=== PATIENT | female | born 1960 | race Caucasian/White ===

== ENCOUNTER → 2017-08-18 | Outpatient (CLI) | payer BC, OTHER ==
[~2017-08-18] VITALS: Ht 170.2 cm; Wt 85.5 kg
[~2017-08-18] MED LIST: BENADRYL25 MG PO; ENDOMETRIN100 MG VG; FLEXERIL PO; NABUMETONE 750750 M1 PO; PREDNISONE 20 M20 MG PO; PROGESTERONE100 MG PO
--- NOTE | ~2017-08-18 | HPC ---
[facility] [address] [email or web address] [address] PAIN MANAGEMENT CONSULTATION Name: AMISH TY Room #: REG [facility]#: [id number] Admission: 08/18/17 Attend Phys: Kojo Pino DO Discharge: Date of : 60 Report #: [id number] THIS REPORT FOR: //name// CC: Kojo Juárez MD DATE OF SERVICE: 08/18/2017 REFERRING PHYSICIAN: Luis Juárez MD CHIEF COMPLAINT: Neck pain and bilateral upper extremity pain and paresthesias. HISTORY OF PRESENT ILLNESS: As you know, the patient is a 57-year-old female who began experiencing neck pain and bilateral upper extremity pain with radiation to the thumb and index fingers bilaterally, presented 07/2017. She denies injury or trauma that may have led to symptoms. She indicates the pain is spontaneous onset, began in the hands with numbness and tingling that can radiate through the entire hand and then progressed into the upper extremities all the way to the neck. She states that coughing, bending over and certain movements with the neck caused instantaneous electrical-like sensations radiating from the neck all the way down into the index finger and thumb bilaterally left greater than right. She has tried conservative medical therapy with her primary care physician, but has not seen improvement. She was subsequently referred to our clinic after undergoing imaging of the cervical spine via MRI. The patient states today her pain is continuous. Describes the pain as burning, shooting, aching, throbbing, sharp, electrical, numbness, tingling. Places current pain score 6/10, daily average of 6/10, worst pain has been 9/10. The patient states the pain is exacerbated with coughing, bending over, moving her neck in certain directions. States muscle relaxers and rest tend to improve pain. She has been referred to our service by her primary care physician for suspected cervical radiculopathy. PAST MEDICAL HISTORY: 1. Chronic stomach problems. 2. Degenerative joint disease. 3. Osteoarthritis. PAST SURGICAL HISTORY: 1. Hysterectomy. 2. Laparoscopies x 7. SOCIAL HISTORY: The patient denies tobacco, IV or illicit drug use. Admits to one alcohol beverage per day. She is a human service specialist. She is [address] [address] PAIN MANAGEMENT CONSULTATION Name: AMISH TY Room #: REG [facility].#: [id number] Admission: 08/18/17 Attend Phys: Kojo Pino DO Discharge: Date of : 60 Report #: [id number] working, not receiving workmen's compensation, nor is trying to obtain disability benefits. She is not in litigation in regards to her pain. She is unaccompanied today. REVIEW OF SYSTEMS: Positive for night sweats, fatigue and weakness, headaches, wearing corrective eyewear, nosebleeds, frequent and recurrent headaches, numbness and tingling sensations involving the bilateral upper extremities all the way into the hand, insomnia, chronic neck pain, postmenopausal symptoms. All other review of systems negative per 12-point review of systems other than those listed in history of present illness. Pain impact score 29/70 indicating moderate interference of daily activities secondary to pain. ALLERGIES: SEAFOOD. CURRENT MEDICATIONS: Progesterone 100 mg once a day, cyclobenzaprine 10 mg 3 times a day, nabumetone 750 mg twice a day. IMAGING: MRI of cervical spine obtained on 08/12/2017 shows, C2-C3, no significant disk bulge or central canal stenosis, advanced right facet arthropathy leading to mild right neural foraminal stenosis, no left neural foraminal stenosis. C3-C4, mild general disk bulge, ligamentum flavum thickening, abutting anterior and posterior margins of the cord, moderate narrowing of the thecal sac. C4-C5, mild anterolisthesis, mild generalized disk bulging, central canal is mildly narrowed, facet arthropathy noted, mild on the right, not on the left. C5-C6, mild generalized disk bulge touching anterior spinal cord, mild stenosis, borderline right, no significant left neural foraminal narrowing. C6-C7, moderate disk space narrowing, mild left eccentric generalized disk complex, moderate central canal stenosis. C7-T1 unremarkable. PHYSICAL EXAMINATION: VITAL SIGNS: Blood pressure 149/97, pulse is 86, respiratory rate 18, unlabored. The patient is 99% on room air. Height 5 feet 7 inches tall, weight 188.6 pounds, BMI calculated 29.6. GENERAL: Well-developed, well-nourished, well-hydrated 57-year-old female appearing her stated age, placing current pain score around 9/10. HEENT: Normocephalic, atraumatic. Pupils equal, round, reactive to light. Extraocular muscles are intact. Sclerae nonicteric without injection. NEUROLOGIC: Cranial nerves 2-12 grossly intact. Speech fluent. The patient deemed an excellent historian. LUNGS: Clear. No wheeze, rhonchi or rales. CARDIOVASCULAR: Regular. No appreciable gallop, no rub. ABDOMEN: Soft, nontender, nondistended, normal active bowel sounds. EXTREMITIES: Show no clubbing, no cyanosis, no edema. MUSCULOSKELETAL: Upper extremity strength appears equal and symmetrical 5/5. [address] [address] PAIN MANAGEMENT CONSULTATION Name: AMISH TY Room #: REG [facility]#: [id number] Admission: 08/18/17 Attend Phys: Kojo Pino DO Discharge: Date of : 60 Report #: [id number] She is intact to light touch from C5-T1 dermatomes. Deep tendon reflexes are symmetrical at biceps, brachioradialis and triceps. Spurling's test positive bilaterally. Valsalva maneuver positive for cervical radiculopathy causing radiation all the way into the hands. ASSESSMENT: 1. Symptomatic cervical radiculopathy. 2. Cervical spinal stenosis. 3. Displacement of cervical intervertebral disk with radiculopathy. 4. Cervical spondylosis with radiculopathy. 5. Chronic intractable pain. PLAN: 1. The patient has been referred to our service. Discussed treatment options for suspected cervical radiculopathy. Based on today's physical exam and history that she provides, the provocating factors with distribution of symptoms and the findings on MRI do correlate to her cervical radicular symptoms. We are able to elicit cervical radicular symptoms, not only with Spurling's test, but also with Valsalva maneuver. We have discussed with the patient treatment options for cervical radiculopathy today, the following was discussed with the patient for treatment options. 2. We discussed physical therapy, stretching exercises and traction techniques as one way to treat her symptoms. We discussed medication management with the addition of a neuropathic pain medication and a possible nonsteroidal anti-inflammatory for consistent anti-inflammatory effects. You requested cervical epidural injection for which the patient was referred to our clinic and possible surgical options. After reviewing risks and benefits of all proposed treatment options, the patient chose to begin with a cervical epidural injection. 3. The patient was advised that we will need to obtain authorization before the patient can undergo the procedure. We will have the patient return once we have obtained this authorization. Authorization could take anywhere from 24-72 hours. We will begin this process immediately having her return in followup visit to undergo cervical epidural injection at her earliest convenience. 4. To assist in pain control at this juncture, we have provided the patient with a sample pack of Gralise. She will begin 300 mg at night and then escalate as directed. She is to take this approximately 2-3 hours before bedtime. She is to watch for side effects of somnolence, decreased mental acuity, disorientation and confusion. If she notes any side effects, contact our clinic; if no side effects and no improvement in symptoms, continue the titration as directed. We will review efficacy at followup visit. 5. We wish to thank Dr. Juárez for the referral of this patient to our clinic. We will keep you apprised of her response to treatment as we address [address] [address] PAIN MANAGEMENT CONSULTATION Name: AMISH TY Room #: REG [facility]#: [id number] Admission: 08/18/17 Attend Phys: Kojo Pino DO Discharge: Date of : 60 Report #: [id number] cervical radiculopathy. Again, we wish to thank you for the opportunity to see the patient in consultation. By: 1201 13 Kojo Pino DO /nt
[2017-08-18 09:26] VITALS: BP 149/97
== END ==
LOC: PAIN 06:46
DX: M47.22 Other spondylosis with radiculopathy, cervical region (principal); M50.10 Cervical disc disorder with radiculopathy, unspecified cervical region; G89.4 Chronic pain syndrome; M48.02 Spinal stenosis, cervical region; M19.042 Primary osteoarthritis, left hand; M19.041 Primary osteoarthritis, right hand

== ENCOUNTER → 2017-08-24 | Outpatient (CLI) | payer BC, OTHER ==
[~2017-08-24] VITALS: Ht 170.2 cm; Wt 86.8 kg
--- NOTE | ~2017-08-24 | HPC ---
[facility] [place] [address] PAIN MANAGEMENT CONSULTATION Name: AMISH TY Room #: REG [facility]#: [id number] Admission: 08/24/17 Attend Phys: Kojo Pino DO Discharge: Date of : 60 Report #: [id number] THIS REPORT FOR: //name// CC: Kojo Juárez MD DATE OF SERVICE: 08/24/2017 CHIEF COMPLAINT: Neck pain, bilateral lower extremity pain and paresthesias. HISTORY OF PRESENT ILLNESS: As you know, the patient is a very pleasant 57-year-old female who returns today in followup visit to undergo cervical epidural injection under fluoroscopic guidance. As you are aware, the patient began experiencing neck pain, bilateral upper extremity pain with radiation to the thumb and the index fingers bilaterally in July. She had had symptoms prior, but these were tolerable. This is when the pain became intolerable. She has returned today in followup visit to undergo cervical epidural injection as her pain remains at a level of 6/10 despite medication changes. She returns to undergo the procedure today stating her pain is burning, shooting, aching, sharp, stabbing, constant numbness and tingling; exacerbated with bending, sitting, activities, coughing and sneezing; relaxation, medications, rest and repositioning appear to improve pain. She has returned to trial an epidural injection. ALLERGIES: SEAFOOD. CURRENT MEDICATIONS: Progesterone, cyclobenzaprine, nabumetone. SOCIAL HISTORY: The patient denies tobacco, IV or illicit drug use. Admits to one alcoholic beverage per day. She is a human services professional, working, not receiving workmen's compensation, unaccompanied today. IMAGING: There is no new imaging available. PHYSICAL EXAMINATION: VITAL SIGNS: Blood pressure 155/102, pulse 104, respiratory rate 18, unlabored. The patient is 100% on room air. Height 5 feet 7 inches tall, weight 191.4 pounds, BMI calculated 30. GENERAL: Well-developed, well-nourished, well-hydrated 57-year-old female. She appears her stated age. She is placing current pain score at 6/10. HEENT: Normocephalic, atraumatic. Pupils equal, round, reactive to light. Extraocular muscles are intact. Sclerae nonicteric without injection. EXTREMITIES: Show no clubbing, no cyanosis, no edema. MUSCULOSKELETAL: Lower extremity strength equal and symmetrical, 5/5. She is intact to light touch from C5 to T1 dermatomes. [place] [address] PAIN MANAGEMENT CONSULTATION Name: AMISH TY Room #: REG [facility]#: [id number] Admission: 08/24/17 Attend Phys: Kojo Pino DO Discharge: Date of : 60 Report #: [id number] symmetrical at biceps, brachioradialis and triceps. Spurling test positive bilaterally. Cervical provocation testing is met with increasing pain with extension, rotation and lateral flexion. Forward flexion does tend to improve pain. ASSESSMENT: 1. Cervical radiculopathy. 2. Cervical spinal stenosis. 3. Displacement of cervical intervertebral disk with radicular symptoms. 4. Cervical spondylosis with radiculopathy. 5. Chronic intractable pain. PLAN: 1. The patient returns today in followup visit to undergo cervical epidural injection under fluoroscopic guidance. She is placing her pain score around 6/10. She denies any changes in medical history or changes in current therapy to treat ongoing symptoms. She has been advised the risks and benefits of a cervical epidural injection. These risks include but are not necessarily limited to bleeding, bruising, infection, worsening pain, no relief of pain, also risk of temporary or permanent muscle weakness, temporary or permanent nerve damage, possible paralysis, post-dural puncture headache and . The patient states she understood and wished to proceed. 2. No medication changes were made at today's visit. The patient will continue current medical therapy as previously prescribed. 3. The patient was provided a release from work for today to recover from today's procedure. She will return to work starting tomorrow. 4. We will see the patient back in followup visit on an as-needed basis for possible next in a series of cervical epidural injections. PROCEDURE NOTE DESCRIPTION OF PROCEDURE: C7-T1 cervical epidural steroid injection under fluoroscopic guidance. After obtaining written consent, the patient was taken back to fluoroscopy suite, placed in prone position with separate pillows under chest and forehead to decrease cervical lordosis. Skin overlying cervical area then prepped and draped in aseptic fashion. C7-T1 cervical interspace identified by AP fluoroscopy. Skin and subcutaneous tissue overlying target site of injection was anesthetized with 3 mL of 1% lidocaine. A 20-gauge 3-1/2 inch Tuohy needle advanced under fluoroscopic guidance towards the epidural space using midline approach. Epidural space identified using loss of resistance to air technique. Due to a potential contrast allergy, no contrast agent was used in today's procedure. Needle positioning was confirmed using both AP and lateral fluoroscopy. After negative aspiration for heme or [address] [address] PAIN MANAGEMENT CONSULTATION Name: AMISH TY Room #: [facility]#: [id number] Admission: 08/24/17 Attend Phys: Kojo Pino DO Discharge: Date of : 60 Report #: [id number] cerebrospinal fluid, 5 mL of solution containing 2 mL 40 mg per mL 80 mg total triamcinolone, 3 mL lidocaine 1% injected slowly. Needle retracted chcf, flushed with 1 mL of 1% lidocaine and removed. Sterile bandage placed over injection site. No new motor deficits present in the upper extremity following procedure. The patient tolerated procedure well, carefully escorted to recovery room in stable condition. No apparent complications. After meeting discharge criteria, the patient discharged home. <ELECTRONICALLY SIGNED> By: Kojo Pino DO 08/25/17 0709 [id number] Kojo Pino DO /nt
[2017-08-24 08:41] VITALS: BP 155/102
== END | disposition home or self-care (01) ==
LOC: PAIN 07:32
DX: M50.10 Cervical disc disorder with radiculopathy, unspecified cervical region (principal); M48.02 Spinal stenosis, cervical region; M47.22 Other spondylosis with radiculopathy, cervical region; G89.29 Other chronic pain; Z91.013 Allergy to seafood; Z79.899 Other long term (current) drug therapy

== ENCOUNTER → 2017-11-24 | Outpatient (CLI) | payer BC, OTHER ==
[~2017-11-24] VITALS: Ht 170.2 cm; Wt 86.9 kg
[~2017-11-24] MED LIST changes: +FOLBIC RF TABL1 EACH PO; +NEURONTIN 300300 M1 PO
--- NOTE | ~2017-11-24 | HPC ---
[facility] [place] [address] PAIN MANAGEMENT CONSULTATION Name: AMISH TY Room #: REG [facility]#: [id number] Admission: 11/24/17 Attend Phys: Kojo Pino DO Discharge: Date of : 60 Report #: [id number] THIS REPORT FOR: //name// CC: Kojo Juárez MD DATE OF SERVICE: 11/24/2017 CHIEF COMPLAINT: Neck pain, bilateral lower extremity pain and paresthesias. HISTORY OF PRESENT ILLNESS: As you know, the patient is a 57-year-old female who returns today in followup visit to undergo next in the series of cervical epidural injections under fluoroscopic guidance. She is placing her pain score today at 8/10. States her pain is burning, shooting, aching, sharp, stabbing, throbbing, constant, numbness and tingling. She indicates pain is exacerbated with bending, sitting activities, coughing and sneezing, and improves with relaxation, medications, rest, repositioning and the previous cervical epidural injection. The patient reports the previous cervical epidural injection gave over 70% improvement in overall pain. Her symptoms unfortunately have begun to return without inciting injury or trauma. She returns today requesting next in a series of cervical epidural injections. ALLERGIES: SEAFOOD. CURRENT MEDICATIONS: Cyclobenzaprine, progesterone, gabapentin, calcium carbonate. SOCIAL HISTORY: The patient denies tobacco, IV or illicit drug use, admits to occasional alcohol beverage. 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 Unaccompanied today. IMAGING: There is no new imaging available. PHYSICAL EXAMINATION: VITAL SIGNS: Blood pressure 158/93, pulse 110, respiratory rate 18 and unlabored. The patient is 96% on room air. Height 5 feet 7 inches tall, weight 191.6 pounds, BMI calculated 30.0. GENERAL: Well-developed, well-nourished, well-hydrated 57-year-old female, appearing stated age, placing current pain score at 8/10. HEENT: Normocephalic, atraumatic. Pupils equal, round, reactive to light. EXTREMITIES: Show no clubbing, no cyanosis, no edema. MUSCULOSKELETAL: Upper extremity strength equal and symmetrical 5/5. She is intact to light touch from C5-T1 dermatomes. Deep tendon reflexes remain symmetrical at biceps, brachialis and triceps. Spurling test positive. [facility] [address] [place] [address] PAIN MANAGEMENT CONSULTATION Name: AMISH TY Room #: [facility]#: [id number] Admission: 11/24/17 Attend Phys: Kojo Pino DO Discharge: Date of : 60 Report #: [id number] bulk and tone is symmetrical in upper extremities. ASSESSMENT: 1. Cervical radiculopathy. 2. Cervical spinal stenosis. 3. Displacement of a cervical intervertebral disk with radiculopathy. 4. Cervical spondylosis with radiculopathy. 5. Chronic intractable pain. PLAN: 1. The patient returns today in followup visit for the next in a series of cervical epidural injections. The patient has noted excellent benefit with previous cervical epidural injections. She wishes to undergo the procedure today. She has been advised risks and benefits, states understood and wished to proceed. 2. The patient was provided refill prescription on her gabapentin. She will be taking 300 mg 4 tablets in the morning, 4 tablets at night. She was given #180 tablets and 5 refills, 6 months' worth of medication. The patient was advised to take the medication as directed. If the patient wishes to make adjustments in medication, she can contact our clinic, we will escalate the dose and then make adjustments in her prescriptions as necessary. This will be utilized for neuropathic pain involving the cervical radiculopathy and the new onset of her low back pain and right buttock pain. If the patient needs prescriptions for this medication further or adjustments, she can contact our clinic. PROCEDURE NOTE: DESCRIPTION OF PROCEDURE: C7-T1 cervical epidural steroid injection under fluoroscopic guidance. After obtaining written consent, the patient was taken back to fluoroscopy suite, placed in prone position with pillow under chest and forehead to decrease cervical lordosis. Skin overlying cervical area then prepped and draped in aseptic fashion. C7-T1 cervical interspace identified by AP fluoroscopy. Skin and subcutaneous tissue overlying target site of injection anesthetized with 3 mL of 1% lidocaine. A 20-gauge 3-1/2 inch Tuohy needle advanced under fluoroscopic guidance towards the epidural space using midline approach. Epidural space identified using loss of resistance to air technique. We did utilize 0.2 mL of Omnipaque to confirm position of the needle within the epidural space. There was good cervical epidural spread posteriorly. Needle position was confirmed. After negative aspiration for heme or cerebrospinal fluid, 5 mL of solution containing 2 mL 40 mg per mL, 80 mg total triamcinolone, 3 mL lidocaine 1% injected slowly. Needle retracted group home, flushed with 1 mL of 1% lidocaine and removed. Sterile bandage placed over injection site. No new motor deficits present in the [facility] [address] [place] [address] PAIN MANAGEMENT CONSULTATION Name: AMISH TY Room #: REG [facility]#: [id number] Admission: 11/24/17 Attend Phys: Kojo Pino DO Discharge: Date of : 60 Report #: [id number] extremity following the procedure. The patient tolerated the procedure well, carefully escorted to recovery room in stable condition. No apparent complications. After meeting discharge criteria, the patient was discharged home. <ELECTRONICALLY SIGNED> By: Kojo Pino DO 11/30/17 1259 [id number] Kojo Pino DO /nt
[2017-11-24 14:29] VITALS: BP 158/93
== END | disposition home or self-care (01) ==
LOC: PAIN 07:00
DX: M50.10 Cervical disc disorder with radiculopathy, unspecified cervical region (principal); M48.02 Spinal stenosis, cervical region; M47.22 Other spondylosis with radiculopathy, cervical region; G89.29 Other chronic pain; Z79.899 Other long term (current) drug therapy; Z98.890 Other specified postprocedural states

== ENCOUNTER → 2018-07-05 | Outpatient (CLI) | payer BC, OTHER | LOC: CAT 08:25 | DX: K57.92 Diverticulitis of intestine, part unspecified, without perforation or abscess without bleeding (principal); Z91.013 Allergy to seafood; Z79.899 Other long term (current) drug therapy; Z90.710 Acquired absence of both cervix and uterus ==

== ENCOUNTER → 2020-11-08 | Outpatient (CLI) | payer OTHER | LOC: CAT 16:07 | PROVIDERS: ATTEND Family Medicine | DX: Z13.6 Encounter for screening for cardiovascular disorders (principal); E78.00 Pure hypercholesterolemia, unspecified; I25.10 Atherosclerotic heart disease of native coronary artery without angina pectoris ==

== ENCOUNTER 2020-12-24 12:32 | Emergency (ER) | payer OTHER ==
[~2020-12-24] VITALS: Ht 170.2 cm; Wt 76.2 kg
[2020-12-24 13:10] LABS: ABSOLUTE NEUTROPHILS 6.5 thou/uL (1.4-8.2); BASOPHILS 0.5 % (0.0-2.0); EOSINOPHILS 0.7 % (0.0-3.0); HEMOGLOBIN 12.9 gm/dL (12.0-15.0); LYMPHOCYTES 15.3 % (24.0-44.0); MCH 32.4 pg (26.0-34.0); MCV 98.3 fL (80.0-100.0); MONOCYTES 11.5 % (1.0-8.0); PLATELET COUNT 287 thou/uL (150-400); RBC 3.97 mil/uL (4.20-5.00); RDW 13.1 % (10.5-14.5); WBC 9.1 thou/uL (4.0-11.0)
[2020-12-24 13:23] LABS: CALCIUM 9.3 mg/dL (8.5-10.1); CREATININE 0.9 mg/dL (0.6-1.0); POTASSIUM 3.5 mmol/L (3.5-5.1)
[2020-12-24 13:29] LABS: ALBUMIN 3.7 g/dL (3.4-5.0); DIRECT BILIRUBIN 0.1 mg/dL (<0.1-0.2); TOTAL BILIRUBIN 0.4 mg/dL (0.2-1.0); TOTAL PROTEIN 7.4 g/dL (6.4-8.2)
[2020-12-24] MEDS ORDERED: FLAGYL500 M1 PO ×2 (14:03→14:08)
[2020-12-24] MEDS ORDERED: CIPRO500 M1 PO (14:03)
[2020-12-24] MEDS ORDERED: HYDROCODON-ACE1 EAC7 PO (14:03)
[2020-12-24 14:40] VITALS: BP 147/84
== END 2020-12-24 14:41 | disposition home or self-care (01) ==
LOC: ER 12:32
PROVIDERS: Nurse Practitioner
DX: K52.9 Noninfective gastroenteritis and colitis, unspecified (principal); R11.2 Nausea with vomiting, unspecified; R10.9 Unspecified abdominal pain; Z90.710 Acquired absence of both cervix and uterus; Z79.899 Other long term (current) drug therapy; Z91.013 Allergy to seafood